=== PATIENT | male | born 1960 | race Hispanic/Latino ===

== ENCOUNTER → 2017-11-11 | Outpatient (CLI) | payer BC ==
--- NOTE | 2017-11-11 14:08 | RAD ---
EXAM DESCRIPTION: Chest,2 Views CLINICAL HISTORY: PRE-SURGERY EVAL. COMPARISON: None available FINDINGS: The cardiomediastinal silhouette is unremarkable. There is no airspace consolidation or pleural effusion. The bronchovascular markings are within normal limits, and the lungs are not hyperinflated. There is no pneumothorax or acute fracture. IMPRESSION: Negative exam. Electronically signed by: Zia Diaz MD 11/11/2017 2:08 PM [facility]
--- NOTE | 2017-11-11 14:08 | RAD ---
EXAM DESCRIPTION: Ankle,Left 3 Views CLINICAL HISTORY: 57 years Male, ANKLE PN COMPARISON: None. FINDINGS: 3 views of the left ankle show a moderately displaced medial malleolar fracture with overlying soft tissue swelling. As a possible non or minimally displaced fracture involving the tip of the lateral malleolus, also with overlying soft tissue swelling. The tibiotalar joint space and talar dome are well-maintained. Calcaneal enthesophyte formation is noted at the insertion site of the plantar fascia. The base of the fifth metatarsal is intact. Vascular calcifications are present. IMPRESSION: Moderately displaced medial malleolar fracture with a possible tiny non or minimally displaced fracture involving the tip of the lateral malleolus. Electronically signed by: Zia Diaz MD 11/11/2017 2:07 PM [facility]
== END ==
LOC: RAD 09:07
PROVIDERS: ATTEND Orthopaedic Surgery
DX: S82.52XA Displaced fracture of medial malleolus of left tibia, initial encounter for closed fracture (principal); Z01.818 Encounter for other preprocedural examination

== ENCOUNTER 2017-11-13 05:51 | Day surgery (SDC) | payer BC ==
[2017-11-13] MEDS ORDERED: LACTATED RINGERS 1,000 ML ONE (05:52)
[2017-11-13] MEDS ORDERED: ceFAZolin SODIUM 1 GM VIAL ONE ×2 (05:52→06:41)
[2017-11-13] MEDS ORDERED: SODIUM CHL 0.9% 100ML MINI-BAG 100 ML IVPB ONE (05:53)
[2017-11-13] MEDS ORDERED: fentaNYL CITRATE INJ 50 MCG/ML AMP ONE (06:24)
[2017-11-13 06:33] VITALS: O2SAT 98
[2017-11-13] MEDS ORDERED: VANCOMYCIN HCL INJ 1,000 MG VIAL IVPB ONE (06:41)
[2017-11-13] MEDS ORDERED: BUPIVACAINE 0.25% INJ 30 ML VIAL INJ ONE (08:06)
[2017-11-13] MEDS ORDERED: PROPOFOL 200 MG/20 ML VIAL IV ONE (10:00)
[2017-11-13 10:38] VITALS: BP 152/82; TEMP 98.2
--- NOTE | 2017-11-13 11:16 | HP ---
CHIEF COMPLAINT: Left ankle pain. HISTORY OF PRESENT ILLNESS: Mr. Parker is a 57 year-old male who fell and twisted his ankle. Mr. Parker had an acute onset of pain in the ankle that is pretty diffuse but prominent along the medial aspect. Mr. Parker denies any other injury associated with this incident. He had the extremity up all weekend and he's been in a splint. PAST SURGICAL HISTORY: None. CODE STATUS: Full code. CURRENT MEDICATIONS: He takes diabetes medication but he is unsure of the name. ALLERGIES: NO KNOWN DRUG ALLERGIES. FAMILY HISTORY: None pertinent to today's complaint. SOCIAL HISTORY: He does not drink, smoke or use any illicit drugs. REVIEW OF SYSTEMS: Negative except as indicated in the history of present illness. PHYSICAL EXAMINATION: MENTAL STATUS: The patient is awake, alert, and is able to give a good history and participate in the physical. The patient is oriented to person, place and time. SKIN: Normal tone and turgor. MUSCULOSKELETAL: Mr. Parker has a diffusely swollen ankle with bruising predominantly along the medial but also along the lateral aspects, sensation is intact, it is warm and well perfused. There is no overall deformity. Obviously , ligamentous exam is not possible just given the discomfort of the patient. IMAGING: X-rays show a displaced medial malleolar fracture. There does not appear to be any overt lateral malleolus fracture. ASSESSMENT: Medial malleolus fracture. PLAN: Just given the displacement, I think it would probably be best to go ahead and fix this. Through a environmental educator we did discuss the risks, benefits, and alternatives to operative therapy. Informed consent was obtained. #[id number] [facility]
--- NOTE | 2017-11-15 07:43 | RAD ---
EXAM DESCRIPTION: Ankle,Left 2 Views CLINICAL HISTORY: POSTOP COMPARISON: November 11, 2017 IMPRESSION: 2 views of the left ankle show interval placement of 2 cortical orthopedic screws fixating the medial malleolar fracture. Fracture fragments appear in near anatomic alignment. There is artifact from overlying splint. 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 Electronically signed by: Silvestre Field MD 11/15/2017 7:[address] [facility]
--- NOTE | 2017-12-04 09:26 | OP ---
DATE OF PROCEDURE: 11/13/17 PREOPERATIVE DIAGNOSIS: 1. Medial malleolus fracture. POSTOPERATIVE DIAGNOSIS: 1. Medial malleolus fracture. PROCEDURE: 1. Open reduction internal fixation of left medial malleolus. SURGEON: Sascha Jackman MD. HOG STOMACH PREPARER: Man Candelaria CST, SA-C. ANESTHESIA: General anesthesia. COMPLICATIONS: None. FINDINGS: Displaced left medial malleolus. INDICATION: Mr. Parker has a history of a twisting injury with an associated fall that caused a medial malleolus fracture. He has acute onset of pain along the medial aspect at that time. He had x-rays which showed displacement of his medial malleolus. Because of the displacement, Mr. Parker and I discussed surgical reduction. After discussing the risks, benefits and alternatives of operative fixation, Mr. Parker gave informed consent for open reduction internal fixation. PROCEDURE: The patient was brought to the Operating Room and placed in supine position. General anesthesia was induced. The patient's leg was sterilely prepped and draped. After prepping and draping, an incision was made directly over the medial malleolus. Blunt dissection was carried down to the fracture site which was debrided of hematoma. The medial malleolus was reduced and 2 cannulated partially threaded screws were placed across the fracture site. The reduction was confirmed under fluoroscopic imaging. Following reduction, the wound was thoroughly irrigated. Following that, stress was applied across the mortise to ensure no widening of the mortise. Once stability of the mortise was confirmed, the wound was thoroughly irrigated. Following irrigation, the wound was closed with Nylon suture. Sterile dressing was placed. The patient was awoken from anesthesia and taken to Recovery. POSTOPERATIVE INSTRUCTIONS: The patient will be [id number]. He has been placed in a splint at this time. We will transition him into a boot on his followup visit which will be in 2 weeks. #[id number] [facility]
== END 2017-11-13 10:22 | disposition home or self-care (01) ==
LOC: AMB 05:51
PROVIDERS: ATTEND Orthopaedic Surgery
DX: S82.52XA Displaced fracture of medial malleolus of left tibia, initial encounter for closed fracture (principal); I10 Essential (primary) hypertension; E11.9 Type 2 diabetes mellitus without complications; Z87.891 Personal history of nicotine dependence; Z79.84 Long term (current) use of oral hypoglycemic drugs; Z79.899 Other long term (current) drug therapy
CPT/HCPCS: 01480; 27766; 36416; 73600; 76000; 82948; C1713; C1769; J0690; J3010; J3370; J3490; J7050; J7120

== ENCOUNTER → 2017-11-21 | Outpatient (CLI) | payer BC ==
--- NOTE | 2017-11-22 17:24 | RAD ---
EXAM DESCRIPTION: Ankle,Left 3 Views CLINICAL HISTORY: CLOSED FX OF MEDIAL MALLEOLUS OF LEFT DISTAL TIBIA COMPARISON: 13 November 2017 TECHNIQUE: 3 views left FINDINGS: Screw fixation of a medial malleolar fracture is observed. Solid bridging callus is not evident. Some soft tissue swelling is seen about the ankle. The ankle mortise is intact. A large plantar calcaneal spur is noted. Calcification of the dorsalis pedis and posterior tibial arteries is noted. Intertarsal arthritis is seen. IMPRESSION: ORIF of a left medial malleolar fracture is observed. No solid callus is observed. Electronically signed by: Giovanni Zavaleta MD 11/22/2017 5:23 PM [facility]
== END ==
LOC: RAD 08:22
PROVIDERS: ATTEND Orthopaedic Surgery
DX: S82.52XD Displaced fracture of medial malleolus of left tibia, subsequent encounter for closed fracture with routine healing (principal)

== ENCOUNTER → 2017-12-09 | Outpatient (CLI) | payer BC ==
--- NOTE | 2017-12-09 09:23 | RAD ---
EXAM: Ankle,Left 3 Views HISTORY: CLOSED FRACTURE OF THE MEDIAL MALLEOLUS OF LEFT TIBIA COMPARISON: November 21, 2017 TECHNIQUE: Three radiographic views of ankle FINDINGS: Stable changes of prior surgical repair along the medial malleolus. Cannulated surgical screws in this region are intact. Unremarkable bony alignment in remainder of ankle without fracture nor dislocation. Tibial plafond and ankle mortise are maintained. Joint spaces are maintained. Minimal soft tissue prominence or swelling in both malleoli regions are unchanged. No significant joint effusion. IMPRESSION: No bony injury in left ankle. Stable postsurgical changes. Electronically signed by: Anupam Nina MD 12/09/2017 9:22 AM [facility]
== END ==
LOC: RAD 08:31
PROVIDERS: ATTEND Orthopaedic Surgery
DX: S82.52XD Displaced fracture of medial malleolus of left tibia, subsequent encounter for closed fracture with routine healing (principal)

== ENCOUNTER → 2017-12-30 | Outpatient (CLI) | payer BC ==
--- NOTE | 2017-12-30 14:14 | RAD ---
EXAM DESCRIPTION: Ankle,Left 3 Views CLINICAL HISTORY: 57 years, Male, S82.52XD COMPARISON: December 09, 2017 TECHNIQUE: AP/lateral/oblique of the Right or left ankle FINDINGS: Orthopedic screws are seen through the medial malleolus with anatomic alignment at the fracture site. Irregularities at the tip of the lateral malleolus and lateral talus or nonacute. Intact bases of the metatarsals. There is is no soft tissue swelling laterally more than medially. Medial and lateral malleolus are intact. Intact dome of the talus. Lateral view shows no evidence of fracture of the body of the talus or calcaneus. Prominent plantar more than dorsal calcaneal spurring is seen. Degenerative spurring is seen at the dorsal talar neck and head and at the dorsal aspect of the navicular. Compared to previous study, no change is evident. IMPRESSION: Orthopedic screws through medial malleolar fracture with no change in alignment. Electronically signed by: Shay Reddy MD 12/30/2017 2:13 PM CDT
== END ==
LOC: RAD 08:11
PROVIDERS: ATTEND Orthopaedic Surgery
DX: S82.52XD Displaced fracture of medial malleolus of left tibia, subsequent encounter for closed fracture with routine healing (principal)

== ENCOUNTER → 2018-01-27 | Outpatient (CLI) | payer BC ==
--- NOTE | 2018-01-27 09:11 | RAD ---
EXAM DESCRIPTION: Ankle,Left 3 Views CLINICAL HISTORY: 57 years, Male, CLOSED FRACTUREOF MALLEOLUS OF LEFT DISTAL TIBIA COMPARISON: Previous study December 30, 2017 TECHNIQUE: AP/lateral/oblique of the left ankle FINDINGS: Orthopedic screws are seen in the medial malleolus. Fracture line is not as well seen suggesting partial healing. Intact lateral malleolus. There is mild soft tissue swelling medially. Bones appear osteopenic. Intact proximal metatarsals. Intact dome of the talus. Lateral view shows no evidence of fracture of the body of the talus or calcaneus. Prominent plantar and mild dorsal calcaneal spurring is seen. Degenerative spurring is seen at the dorsal talonavicular joint. Spurring is seen at the anterior and posterior aspects the ankle joint as well as at the tips of the medial and lateral malleolus. IMPRESSION: Healing fracture of the medial malleolus with orthopedic screws in place. Electronically signed by: Shay Reddy MD 01/27/2018 9:10 AM CDT
== END ==
LOC: RAD 08:30
PROVIDERS: ATTEND Orthopaedic Surgery
DX: S82.52XD Displaced fracture of medial malleolus of left tibia, subsequent encounter for closed fracture with routine healing (principal)